=== PATIENT | male | born 2000 | race Caucasian/White ===

== ENCOUNTER 2020-03-23 13:11 | Emergency (ER) | payer MEDICAID ==
[~2020-03-23] VITALS: Ht 177.8 cm; Wt 100.0 kg
[2020-03-23 13:17] VITALS: BP 134/75
[2020-03-23] MEDS ORDERED: ketorolac tromethamine 15mg/ml inj. IM ONE (14:20)
[2020-03-23] MEDS ORDERED: IBUP-1984 PO (15:34)
== END 2020-03-23 15:53 | disposition home or self-care (01) ==
LOC: ER 13:12
DX: M25.461 Effusion, right knee (principal); M25.561 Pain in right knee
CPT/HCPCS: 29530; 73564; 96372; 99283; J1885

== ENCOUNTER 2020-04-01 14:08 | Emergency (ER) | payer MEDICAID ==
[~2020-04-01] VITALS: Ht 177.8 cm; Wt 96.5 kg
[~2020-04-01 14:08] MED LIST: IBUP-1984 PO
[2020-04-01 14:34] VITALS: BP 119/66
== END 2020-04-01 17:19 | disposition left against medical advice (07) ==
LOC: ER 14:09
DX: M25.561 Pain in right knee (principal); Z53.21 Procedure and treatment not carried out due to patient leaving prior to being seen by health care provider